=== PATIENT | male | born 1940 | race Caucasian/White ===

== ENCOUNTER → 2019-07-02 | Outpatient (CLI) | payer MEDICARE, BC | LOC: COL.RAD 07:24 | DX: C61 Malignant neoplasm of prostate (principal); K80.20 Calculus of gallbladder without cholecystitis without obstruction; I77.811 Abdominal aortic ectasia; I70.0 Atherosclerosis of aorta; K76.9 Liver disease, unspecified; I25.10 Atherosclerotic heart disease of native coronary artery without angina pectoris | CPT/HCPCS: Q9967 ==

== ENCOUNTER → 2019-07-07 | Outpatient (CLI) | payer MEDICARE, BC | LOC: COL.RAD 08:32 | DX: C61 Malignant neoplasm of prostate (principal); M89.9 Disorder of bone, unspecified | CPT/HCPCS: A9503 ==

== ENCOUNTER 2023-11-12 09:31 | Day surgery (SDC) | payer MEDICARE, BC ==
[~2023-11-12] VITALS: Ht 185.4 cm; Wt 94.8 kg
[~2023-11-12 09:31] MED LIST: AMBIEN 10MG10 MG PO; ATHLETE'S FOOT1% TP; BACTROBAN 22GM22 GM; CEPHALEXIN500 M1 PO; ELIQUIS 5MG PO; GLUCOPHAGE1000 MG PO; INSULIN AS100 UNIT/3 SQ; JARDIANCE25 PO; LASIX 20MG TABL20 MG PO; LEVEMIR FLEX100 U/ML SQ; LIPITOR 40MG TA40 MG PO; MASON NATURAL2000 IU PO; OZEMPIC1 MG/0.71 SQ; ROXICODONE 55 MG/TAB PO; VASOTEC 5MG5 MG/TAB PO
[2023-11-12] MEDS ORDERED: TYLENOL PM EXTR1 TA1 PO (10:16)
[2023-11-12] MEDS ORDERED: RITE AID GLUCOSE4 G1 PO (10:18)
[2023-11-12] MEDS ORDERED: PRILOSEC 20MG20 MG PO (10:22)
[2023-11-12] MEDS ORDERED: CARAFATE 1GM1 G PO (10:23)
[2023-11-12] MEDS ORDERED: PREPH RC (10:30)
[2023-11-12] MEDS ORDERED: ALEVE 220MG220 MG PO (10:31)
[2023-11-12 14:05] VITALS: BP 143/64; PULSE 77; TEMP 97.7
--- NOTE | 2023-11-12 14:07 | NUR ---
0921 PT TO [facility] VIA WHEEL CHAIR. BREATHING EVEN AND UNLABORED. PT IS ALERT AND ORIENTED. PT REPORTING THAT HE DRANK A BOOST 2 HRS PRIOR TO ARRIVAL. ANESTHESIA AWARE AND DR CHAVEZ NOTIFIED. PT'S PROCEDURE WILL BE DELAYED UNTIL LATER THIS AFTERNOON. CONSENTS REVIEWED W/ PT AND SIGNED BY PT. IV ESTABLISHED. NS INFUSING VIA GRAVITY AT [facility]. ACCUCKECK DONE. RESULTS OF 338 MG/DL REPORTED TO ALFREDO JAMA. NO NEW ORDERS RECEIVED. CALL LIGHT IN REACH. WARM BLANKET PROVIDED.
[2023-11-12 16:35] VITALS: BP 127/56; PULSE 84; TEMP 97.1
[2023-11-12 16:50] VITALS: BP 123/80; PULSE 63
--- NOTE | 2023-11-12 17:42 | NUR ---
1635 PT RETURNED TO BAY 1 FROM OR. [facility] AND MANPREET RN. PT IS ALERT AND ORIENTED, BREATHING EVEN AND UNLABLED. SURGICAL SITE COVERED W/ CLEAN AND DRY DRESSING. PT TOLERTAED WATER PO. REFUSED OFFERED SNACKS. GLUCOSE 243 MG/DL POST OP. DR. CHAVEZ IN TO GIVE INSTRUCTIONS TO PT AND HIS FRIEND, [place]. 1711 PRINTED PHYSICIAN DISCHARGE INSTRUCTIONS AND PT EDUCATIONAL MATERIALS REVIEWED W/ PT. QUESTIONS INVITED AND ANSWERED. 8316 PT TO LOBBY VIA WHEEL CHAIR FOR RIDE HOME WITH HIS FRIEND IN POV.
== END 2023-11-12 17:36 | disposition home or self-care (01) ==
LOC: SDCO 09:31
DX: C25.0 Malignant neoplasm of head of pancreas (principal); C78.7 Secondary malignant neoplasm of liver and intrahepatic bile duct; I48.20 Chronic atrial fibrillation, unspecified; E11.9 Type 2 diabetes mellitus without complications; Z79.01 Long term (current) use of anticoagulants; Z87.891 Personal history of nicotine dependence; Z79.4 Long term (current) use of insulin; Z79.84 Long term (current) use of oral hypoglycemic drugs; Z85.46 Personal history of malignant neoplasm of prostate; Z85.51 Personal history of malignant neoplasm of bladder
CPT/HCPCS: C1788; J0690; J2704; J7030